=== PATIENT | male | born 1955 | race Two or more races ===

== ENCOUNTER 2017-06-29 17:33 | Inpatient (IN) | payer OTHER ==
[~2017-06-29] VITALS: Ht 172.7 cm; Wt 34.9 kg
[2017-06-29] MEDS ORDERED: PROAIR HFA8.5 GM INH (17:38)
[2017-06-29] MEDS ORDERED: TRAMADOL HCL50 MG ORAL (17:38)
[2017-06-29] MEDS ORDERED: QVAR7.3 G2 IH (17:38)
[2017-06-29 17:55] VITALS: BP 151/75
[2017-06-29 18:00] LABS: BASOPHILS % (AUTO) 0.6 % (0.0-2.0); EOSINOPHILS % (AUTO) 3.2 % (0.0-3.0); HEMOGLOBIN 14.3 G/DL (14.2-18.0); LYMPHOCYTES % (AUTO) 13.2 % (20.0-45.0); MEAN CORPUSCULAR VOLUME 93 FL (80-99); MONOCYTES % (AUTO) 11.4 % (1.0-10.0); NEUTROPHILS % (AUTO) 71.6 % (45.0-75.0); PLATELET COUNT 205 K/UL (150-450); RED BLOOD COUNT 4.52 M/UL (4.70-6.10); RED CELL DISTRIBUTION WIDTH 11.5 % (11.6-14.8); WHITE BLOOD COUNT 9.2 K/UL (4.8-10.8)
[2017-06-29 18:03] LABS: INR 1.1 (0.9-1.1)
[2017-06-29 18:07] LABS: ANION GAP 8 mmol/L (5-15); BLOOD UREA NITROGEN 31 mg/dL (7-18); CALCIUM 9.2 MG/DL (8.5-10.1); CARBON DIOXIDE 28 MMOL/L (21-32); CHLORIDE 104 MMOL/L (98-107); CREATININE 2.1 MG/DL (0.55-1.30); POTASSIUM 3.9 MMOL/L (3.5-5.1); SODIUM 140 MMOL/L (136-145)
[2017-06-29 18:11] LABS: ALANINE AMINOTRANSFERASE 28 U/L (12-78); ALBUMIN 3.5 G/DL (3.4-5.0); ALBUMIN/GLOBULIN RATIO 0.9 (1.0-2.7); ALKALINE PHOSPHATASE 80 U/L (46-116); ASPARTATE AMINO TRANSFERASE 34 U/L (15-37); BILIRUBIN,TOTAL 0.4 MG/DL (0.2-1.0)
[2017-06-29 18:15] VITALS: BP 111/75
[2017-06-29 21:27] LABS: APPEARANCE,URINE SLIGHTLY CLOUDY; BILIRUBIN, URINE NEGATIVE (NEGATIVE); GLUCOSE, URINE (UA) NEGATIVE (NEGATIVE); KETONES,URINE NEGATIVE (NEGATIVE); LEUKOCYTE ESTERASE ,URINE 2+ (NEGATIVE); NITRITE,URINE NEGATIVE (NEGATIVE); PH,URINE 5 (4.5-8.0); PROTEIN,URINE 2+ (NEGATIVE); UROBILINOGEN,URINE 1 MG/DL (0.0-1.0)
[2017-06-29] MEDS ORDERED: cefTRIAXone 1 GM in NS 55 ML IVPB ONE (21:30)
[2017-06-29 21:39] LABS: COLOR,URINE YELLOW
[2017-06-29] MEDS ORDERED: Miralax 17gm pkt ORAL PRN (22:00)
[2017-06-29] MEDS ORDERED: Zolpidem 5mg tab ORAL PRN (22:00)
[2017-06-29] MEDS ORDERED: LORazepam Inj 2mg/ml 1ml IV PRN (22:00)
[2017-06-29] MEDS ORDERED: Mylanta II UD 30ml ORAL PRN (22:00)
--- NOTE | 2017-06-29 22:32 | Emergency Room Report ---
History of Present Illness General Chief Complaint: Male Urogenital Problems Source: Patient, EMS Present Illness HPI Patient is a 62-year-old male brought in by EMS after increased difficulty with gross hematuria. The patient had previous episodes of hematuria which were not as severe. Patient reported having had dark red blood. He denied prior bleeding history. He reports taking the large amounts of omega-3 however he denies taking any anticoagulants or aspirin. The patient states that he had not been known to have any prostate issues. He had previously been on diuretics for leg swelling hydrochlorothiazide Allergies: Coded Allergies: No Known Allergies (Unverified , 06/29/17) Patient History Past Medical History: see triage record Reviewed Nursing Documentation: PMH: Agreed; PSxH: Agreed Nursing Documentation-PMH Past Medical History: No History, Except For Hx Cardiac Problems: Yes - CHF Hx Hypertension: Yes Hx Asthma: Yes Review of Systems All Other Systems: negative except mentioned in HPI Physical Exam Vital Signs Date Time Temp Pulse Resp B/P (MAP) Pulse Ox O2 Delivery O2 Flow Rate FiO2 06/29/17 17:25 99.2 100 14 151/75 98 Room Air 99.1 Sp02 EP Interpretation: reviewed, normal General Appearance: normal inspection, well appearing, no apparent distress, alert, GCS 15 Head: atraumatic ENT: normal ENT inspection, hearing grossly normal, normal voice Neck: normal inspection, full range of motion, supple, no bony tend Respiratory: normal inspection, lungs clear, normal breath sounds, no respiratory distress, no retraction, no wheezing Cardiovascular #1: regular rate, rhythm, no edema Gastrointestinal: normal inspection, normal bowel sounds, non tender, soft, no guarding, no hernia Genitourinary: no CVA tenderness Musculoskeletal: normal inspection, back normal, normal range of motion Neurologic: normal inspection, alert, oriented x3, responsive, 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 Differential diagnosis included was not limited to urinary tract infection, renal cell carcinoma, bladder CA pyelonephritis among others.Because of complexity of patient's case laboratory testing and imaging studies were ordered. A studies were notable for adequate hemoglobin as well as evidence of urinary infection. CT the abdomen pelvis read by radiology showed bilateral renal stones with atrophy of kidney. Patient was given IV antibiotics. Dr. Thorpe was contacted for inpatient management due to complexity of medical condition. Dr. Olson was contacted for urology consult Labs Test 06/29/17 17:42 06/29/17 20:37 White Blood Count 9.2 K/UL (4.8-10.8) Red Blood Count 4.52 M/UL (4.70-6.10) Hemoglobin 14.3 G/DL (14.2-18.0) Hematocrit 42.0 % (42.0-52.0) Mean Corpuscular Volume 93 FL (80-99) Mean Corpuscular Hemoglobin 31.5 PG (27.0-31.0) Mean Corpuscular Hemoglobin Concent 34.0 G/DL (32.0-36.0) Red Cell Distribution Width 11.5 % (11.6-14.8) Platelet Count 205 K/UL (150-450) Mean Platelet Volume 8.5 FL (6.5-10.1) Neutrophils (%) (Auto) 71.6 % (45.0-75.0) Lymphocytes (%) (Auto) 13.2 % (20.0-45.0) Monocytes (%) (Auto) 11.4 % (1.0-10.0) Eosinophils (%) (Auto) 3.2 % (0.0-3.0) Basophils (%) (Auto) 0.6 % (0.0-2.0) Prothrombin Time 11.0 SEC (9.30-11.50) Prothromb Time International Ratio 1.1 (0.9-1.1) Activated Partial Thromboplast Time 28 SEC (23-33) Sodium Level 140 MMOL/L (136-145) Potassium Level 3.9 MMOL/L (3.5-5.1) Chloride Level 104 MMOL/L (98-107) Carbon Dioxide Level 28 MMOL/L (21-32) Anion Gap 8 mmol/L (5-15) Blood Urea Nitrogen 31 mg/dL (7-18) Creatinine 2.1 MG/DL (0.55-1.30) Estimat Glomerular Filtration Rate 32.1 mL/min (>60) Glucose Level 117 MG/DL (74-106) Calcium Level 9.2 MG/DL (8.5-10.1) Total Bilirubin 0.4 MG/DL (0.2-1.0) Aspartate Amino Transf (AST/SGOT) 34 U/L (15-37) Alanine Aminotransferase (ALT/SGPT) 28 U/L (12-78) Alkaline Phosphatase 80 U/L (46-116) Total Protein 7.6 G/DL (6.4-8.2) Albumin 3.5 G/DL (3.4-5.0) Globulin 4.1 g/dL Albumin/Globulin Ratio 0.9 (1.0-2.7) Lipase 125 U/L (73-393) Urine Color Yellow Urine Appearance Slightly cloudy Urine pH 5 (4.5-8.0) Urine Specific [place] 1.020 (1.005-1.035) Urine Protein 2+ (NEGATIVE) Urine Glucose (UA) Negative (NEGATIVE) Urine Ketones Negative (NEGATIVE) Urine Occult Blood 5+ (NEGATIVE) Urine Nitrite Negative (NEGATIVE) Urine Bilirubin Negative (NEGATIVE) Urine Urobilinogen 1 MG/DL (0.0-1.0) Urine Leukocyte Esterase 2+ (NEGATIVE) Urine RBC 15-20 /HPF (0 - 0) Urine WBC 5-10 /HPF (0 - 0) Urine Squamous Epithelial Cells None /LPF (NONE/OCC) Urine Amorphous Sediment Few /LPF (NONE) Urine Bacteria Few /HPF (NONE) Last Vital Signs Date Time Temp Pulse Resp B/P (MAP) Pulse Ox O2 Delivery O2 Flow Rate FiO2 06/29/17 18:15 99.1 14 111/75 98 Room Air 99.1 06/29/17 17:25 100 Status: unchanged Disposition: ADMITTED INPATIENT Condition: Serious Referrals: ADRIANA PERRY,REFERRING (PCP) Rudi Shannon Jun 29, 2017 22:32
--- NOTE | 2017-06-29 23:00 | History and Physical ---
History of Present Illness General Date patient seen: Jun 29, 2017 Reason for Hospitalization: Male Urogenital Problems Present Illness HPI 62-year-old male with hx of CHF, brought in by EMS with CC of gross hematuria. The patient had previous episodes of hematuria which were not as severe. Patient reported having had dark red blood. He denied prior bleeding history. he denies taking any anticoagulants or aspirin. The patient states that he had not been known to have any prostate issues. Allergies: Coded Allergies: No Known Allergies (Unverified , 06/29/17) Medication History Scheduled Albuterol Sulfate* (Proair Hfa*), Unknown Dose INH Q6H, (Reported) Scheduled PRN Tramadol Hcl* (Ultram*), Unknown Dose ORAL Q6H PRN for For Pain, (Reported) Miscellaneous Medications Beclomethasone Dipropionate (Qvar), Unknown Dose IH, (Reported) Patient History Healthcare decision maker Resuscitation status Advanced Directive on File Past Medical/Surgical History Past Medical/Surgical History: (1) Bilateral kidney stones Review of Systems All Other Systems: negative except mentioned in HPI Physical Exam General Appearance: WD/WN Lines, tubes and drains: peripheral HEENT: normocephalic, atraumatic Neck: non-tender, normal alignment, limited range of motion Respiratory/Chest: chest wall non-tender, lungs clear Cardiovascular/Chest: normal peripheral pulses, normal rate Abdomen: non tender Last 24 Hour Vital Signs Date Time Temp Pulse Resp B/P (MAP) Pulse Ox O2 Delivery O2 Flow Rate FiO2 06/29/17 18:15 99.1 14 111/75 98 Room Air 99.1 06/29/17 17:55 99.1 14 151/75 98 Room Air 99.1 06/29/17 17:25 99.2 100 14 151/75 98 Room Air 99.1 Laboratory Tests Test 06/29/17 17:42 06/29/17 20:37 White Blood Count 9.2 K/UL (4.8-10.8) Red Blood Count 4.52 M/UL (4.70-6.10) L Hemoglobin 14.3 G/DL (14.2-18.0) Hematocrit 42.0 % (42.0-52.0) Mean Corpuscular Volume 93 FL (80-99) Mean Corpuscular Hemoglobin 31.5 PG (27.0-31.0) H Mean Corpuscular Hemoglobin Concent 34.0 G/DL (32.0-36.0) Red Cell Distribution Width 11.5 % (11.6-14.8) L Platelet Count 205 K/UL (150-450) Mean Platelet Volume 8.5 FL (6.5-10.1) Neutrophils (%) (Auto) 71.6 % (45.0-75.0) Lymphocytes (%) (Auto) 13.2 % (20.0-45.0) L Monocytes (%) (Auto) 11.4 % (1.0-10.0) H Eosinophils (%) (Auto) 3.2 % (0.0-3.0) H Basophils (%) (Auto) 0.6 % (0.0-2.0) Prothrombin Time 11.0 SEC (9.30-11.50) Prothromb Time International Ratio 1.1 (0.9-1.1) Activated Partial Thromboplast Time 28 SEC (23-33) Sodium Level 140 MMOL/L (136-145) Potassium Level 3.9 MMOL/L (3.5-5.1) Chloride Level 104 MMOL/L (98-107) Carbon Dioxide Level 28 MMOL/L (21-32) Anion Gap 8 mmol/L (5-15) Blood Urea Nitrogen 31 mg/dL (7-18) H Creatinine 2.1 MG/DL (0.55-1.30) H Estimat Glomerular Filtration Rate 32.1 mL/min (>60) Glucose Level 117 MG/DL (74-106) H Calcium Level 9.2 MG/DL (8.5-10.1) Total Bilirubin 0.4 MG/DL (0.2-1.0) Aspartate Amino Transf (AST/SGOT) 34 U/L (15-37) Alanine Aminotransferase (ALT/SGPT) 28 U/L (12-78) Alkaline Phosphatase 80 U/L (46-116) Total Protein 7.6 G/DL (6.4-8.2) Albumin 3.5 G/DL (3.4-5.0) Globulin 4.1 g/dL Albumin/Globulin Ratio 0.9 (1.0-2.7) L Lipase 125 U/L (73-393) Urine Color Yellow Urine Appearance Slightly cloudy Urine pH 5 (4.5-8.0) Urine Specific [place] 1.020 (1.005-1.035) Urine Protein 2+ (NEGATIVE) H Urine Glucose (UA) Negative (NEGATIVE) Urine Ketones Negative (NEGATIVE) Urine Occult Blood 5+ (NEGATIVE) H Urine Nitrite Negative (NEGATIVE) Urine Bilirubin Negative (NEGATIVE) Urine Urobilinogen 1 MG/DL (0.0-1.0) H Urine Leukocyte Esterase 2+ (NEGATIVE) H Urine RBC 15-20 /HPF (0 - 0) H Urine WBC 5-10 /HPF (0 - 0) H Urine Squamous Epithelial Cells None /LPF (NONE/OCC) Urine Amorphous Sediment Few /LPF (NONE) H Urine Bacteria Few /HPF (NONE) Height (Feet): 5 Height (Inches): 10.00 Weight (Pounds): 170 Medications Current Medications Medications (Trade) Dose Ordered Sig/Fatoumata Route PRN Reason Start Time Stop Time Status Last Admin Dose Admin Acetaminophen (Tylenol) 650 mg Q4H PRN ORAL fever 06/29/17 22:00 07/29/17 21:59 Al Hydroxide/Mg Hydroxide (Mylanta II) 30 ml Q6H PRN ORAL dyspepsia 06/29/17 22:00 07/29/17 21:59 Dextrose (Dextrose 50%) STAT PRN IV Hypoglycemia 06/29/17 22:00 07/29/17 21:59 Lorazepam (Ativan 2mg/ml 1ml) 0.5 mg Q4H PRN IV For Anxiety 06/29/17 22:00 07/06/17 21:59 Morphine Sulfate (Morphine Sulfate) 1 mg Q4H PRN IVP For Pain 06/29/17 22:30 07/06/17 22:29 Ondansetron HCl (Zofran) 4 mg Q6H PRN IVP Nausea & Vomiting 06/29/17 22:00 07/29/17 21:59 Polyethylene Glycol (Miralax) 17 gm HSPRN PRN ORAL Constipation 06/29/17 22:00 07/29/17 21:59 Zolpidem Tartrate (Ambien) 5 mg HSPRN PRN ORAL Insomnia 06/29/17 22:00 07/06/17 21:59 Assessment/Plan Problem List: (1) Hematuria ICD Codes: R31.9 - Hematuria, unspecified SNOMED: 73385819 (2) Urinary tract infection ICD Codes: N39.0 - Urinary tract infection, site not specified SNOMED: 57225039 (3) Bilateral kidney stones ICD Codes: N20.0 - Calculus of kidney SNOMED: 07824767 Assessment/Plan check urine c/s Urology evaluation iv fluids iv abx Annelise Thorpe MD Jun 29, 2017 23:00
[2017-06-30] VITALS (8 sets, daily range): BP systolic 92–132; BP diastolic 60–81
[2017-06-30 07:30] LABS: ALANINE AMINOTRANSFERASE 23 U/L (12-78); ALBUMIN 2.9 G/DL (3.4-5.0); ALBUMIN/GLOBULIN RATIO 0.8 (1.0-2.7); ALKALINE PHOSPHATASE 68 U/L (46-116); ANION GAP 8 mmol/L (5-15); ASPARTATE AMINO TRANSFERASE 25 U/L (15-37); BILIRUBIN,TOTAL 0.2 MG/DL (0.2-1.0); BLOOD UREA NITROGEN 28 mg/dL (7-18); CALCIUM 8.8 MG/DL (8.5-10.1); CARBON DIOXIDE 28 MMOL/L (21-32); CHLORIDE 106 MMOL/L (98-107); CHOLESTEROL 116 MG/DL (< 200); CREATININE 1.7 MG/DL (0.55-1.30); HDL CHOLESTEROL 42 MG/DL (40-60); POTASSIUM 3.7 MMOL/L (3.5-5.1); SODIUM 142 MMOL/L (136-145); TRIGLYCERIDES 100 MG/DL (30-150)
[2017-06-30 07:32] LABS: BASOPHILS % (AUTO) 0.8 % (0.0-2.0); EOSINOPHILS % (AUTO) 5.9 % (0.0-3.0); HEMATOCRIT 36.6 % (42.0-52.0); HEMOGLOBIN 12.3 G/DL (14.2-18.0); MEAN CORPUSCULAR VOLUME 93 FL (80-99); MONOCYTES % (AUTO) 15.8 % (1.0-10.0); NEUTROPHILS % (AUTO) 55.6 % (45.0-75.0); PLATELET COUNT 182 K/UL (150-450); RED BLOOD COUNT 3.95 M/UL (4.70-6.10); RED CELL DISTRIBUTION WIDTH 11.5 % (11.6-14.8); WHITE BLOOD COUNT 6.8 K/UL (4.8-10.8)
--- NOTE | 2017-06-30 08:54 | Diagnostic Imaging Report ---
Indication: Abdominal pain Technique: Spiral acquisitions obtained through the abdomen and pelvis. No oral contrast utilized, per emergency room physician request No IV contrast utilized, per referring physician request.. Multiplanar reconstructions were generated. Total dose length product 517.01 mGycm. CTDIvol(s) 10.62 mGy. Dose reduction achieved using automated exposure control Comparison: None Findings: There are scattered colonic diverticula. No evidence of diverticulitis liter. The appendix is normal. No small bowel distention. No free or loculated intraperitoneal air or fluid. Distal esophagus, stomach, duodenum are unremarkable. Lack of IV contrast limits assessment of the solid organs. The liver is somewhat enlarged. The gallbladder, bile ducts, pancreas, spleen, adrenals are unremarkable. The right kidney is atrophic, demonstrates an 18 x 6 x 12 mm staghorn calculus in the lower pole. As well as other smaller calcifications No hydronephrosis. The left kidney is normal in size. It demonstrates an 8 x 4 mm calculus in the lower pole collecting system. No focal renal mass. No retroperitoneal or mesenteric mass or adenopathy. No pelvic mass or adenopathy. There are degenerative changes of the lumbar spine and bilateral hip. The included lung bases demonstrate minimal scarring or atelectasis at the posterior medial right lung base and the medial left lung base. Impression: No acute abnormality Bilateral nephrolithiasis as described, including right lower pole staghorn calculus Markedly atrophic right kidney Degenerative lumbar spondylosis and bilateral hip degenerative change Colonic diverticulosis This agrees with the preliminary interpretation provided overnight by [facility] teleradiology service. The CT scanner at [facility] is accredited by the [employer] and the scans are performed using protocols designed to limit radiation exposure to as low as reasonably achievable to attain images of sufficient resolution adequate for diagnostic evaluation.
--- NOTE | 2017-06-30 16:32 | Pulmonology Progress Note ---
Assessment/Plan Problems: (1) Hematuria (2) Urinary tract infection (3) Bilateral kidney stones Assessment/Plan iv fluids check culutres rneal studies renal to see awaiting urology evaluation Subjective ROS Limited/Unobtainable: No Interval Events: doing better, Allergies: Coded Allergies: No Known Allergies (Unverified , 06/29/17) Objective Last 24 Hour Vital Signs Date Time Temp Pulse Resp B/P (MAP) Pulse Ox O2 Delivery O2 Flow Rate FiO2 06/30/17 16:00 97.0 68 18 106/63 97 97.0 06/30/17 11:44 97.3 70 18 115/75 98 97.3 06/30/17 08:00 97.9 83 18 109/66 97 Room Air 97.9 06/30/17 04:00 99.4 84 20 113/62 96 99.4 06/30/17 00:45 37.11270 70 21 115/89 97 Room Air 209.5 06/30/17 00:45 98.6 70 21 132/81 97 98.6 06/30/17 00:00 98.9 80 18 115/81 96 Room Air 98.9 06/29/17 18:15 99.1 14 111/75 98 Room Air 99.1 06/29/17 17:55 99.1 14 151/75 98 Room Air 99.1 06/29/17 17:25 99.2 100 14 151/75 98 Room Air 99.1 Intake and Output 06/29/17 06/30/17 19:00 07:00 Intake Total 0 ml Output Total 450 ml Balance 0 ml -450 ml Intake Oral 0 ml Output Urine Total 450 ml Objective General Appearance: WD/WN Lines, tubes and drains: peripheral HEENT: normocephalic, atraumatic Neck: non-tender, normal alignment, limited range of motion Respiratory/Chest: chest wall non-tender, lungs clear Cardiovascular/Chest: normal peripheral pulses, normal rate Abdomen: non tender Laboratory Tests 06/29/17 17:42: White Blood Count 9.2, Red Blood Count 4.52L, Hemoglobin 14.3, Hematocrit 42.0, Mean Corpuscular Volume 93, Mean Corpuscular Hemoglobin 31.5H, Mean Corpuscular Hemoglobin Concent 34.0, Red Cell Distribution Width 11.5L, Platelet Count 205, Mean Platelet Volume 8.5, Neutrophils (%) (Auto) 71.6, Lymphocytes (%) (Auto) 13.2L, Monocytes (%) (Auto) 11.4H, Eosinophils (%) (Auto) 3.2H, Basophils (%) ( Auto) 0.6, Prothrombin Time 11.0, Prothromb Time International Ratio 1.1, Activated Partial Thromboplast Time 28, Sodium Level 140, Potassium Level 3.9, Chloride Level 104, Carbon Dioxide Level 28, Anion Gap 8, Blood Urea Nitrogen 31H, Creatinine 2.1H, Estimat Glomerular Filtration Rate 32.1, Glucose Level 117H, Calcium Level 9.2, Total Bilirubin 0.4, Aspartate Amino Transf (AST/SGOT) 34, Alanine Aminotransferase (ALT/SGPT) 28, Alkaline Phosphatase 80, Total Protein 7.6, Albumin 3.5, Globulin 4.1, Albumin/Globulin Ratio 0.9L, Lipase 125 06/29/17 20:37: Urine Color Yellow, Urine Appearance Slightly cloudy, Urine pH 5, Urine Specific [place] 1.020, Urine Protein 2+H, Urine Glucose (UA) Negative, Urine Ketones Negative, Urine Occult Blood 5+H, Urine Nitrite Negative, Urine Bilirubin Negative, Urine Urobilinogen 1H, Urine Leukocyte Esterase 2+H, Urine RBC 15-20H, Urine WBC 5-10H, Urine Squamous Epithelial Cells None, Urine Amorphous Sediment FewH, Urine Bacteria Few 06/30/17 05:50: White Blood Count 6.8, Red Blood Count 3.95L, Hemoglobin 12.3L, Hematocrit 36.6L , Mean Corpuscular Volume 93, Mean Corpuscular Hemoglobin 31.2H, Mean Corpuscular Hemoglobin Concent 33.7, Red Cell Distribution Width 11.5L, Platelet Count 182, Mean Platelet Volume 8.6, Neutrophils (%) (Auto) 55.6, Lymphocytes (%) (Auto) 22.0, Monocytes (%) (Auto) 15.8H, Eosinophils (%) (Auto) 5.9H, Basophils (%) (Auto) 0.8, Sodium Level 142, Potassium Level 3.7, Chloride Level 106, Carbon Dioxide Level 28, Anion Gap 8, Blood Urea Nitrogen 28H, Creatinine 1.7H, Estimat Glomerular Filtration Rate 40.9, Glucose Level 96, Calcium Level 8.8, Total Bilirubin 0.2, Aspartate Amino Transf (AST/SGOT) 25, Alanine Aminotransferase (ALT/SGPT) 23, Alkaline Phosphatase 68, Total Protein 6.6, Albumin 2.9L, Globulin 3.7, Albumin/Globulin Ratio 0.8L, Triglycerides Level 100, Cholesterol Level 116, LDL Cholesterol 61, HDL Cholesterol 42, Cholesterol/HDL Ratio 2.8L, Thyroid Stimulating Hormone (TSH) 1.732 Current Medications Medications (Trade) Dose Ordered Sig/Fatoumata Route PRN Reason Start Time Stop Time Status Last Admin Dose Admin Acetaminophen (Tylenol) 650 mg Q4H PRN ORAL fever 06/29/17 22:00 07/29/17 21:59 Al Hydroxide/Mg Hydroxide (Mylanta II) 30 ml Q6H PRN ORAL dyspepsia 06/29/17 22:00 07/29/17 21:59 Dextrose (Dextrose 50%) STAT PRN IV Hypoglycemia 06/29/17 22:00 07/29/17 21:59 Lorazepam (Ativan 2mg/ml 1ml) 0.5 mg Q4H PRN IV For Anxiety 06/29/17 22:00 07/06/17 21:59 Morphine Sulfate (Morphine Sulfate) 1 mg Q4H PRN IVP For Pain 06/29/17 22:30 07/06/17 22:29 Ondansetron HCl (Zofran) 4 mg Q6H PRN IVP Nausea & Vomiting 06/29/17 22:00 07/29/17 21:59 Polyethylene Glycol (Miralax) 17 gm HSPRN PRN ORAL Constipation 06/29/17 22:00 07/29/17 21:59 Zolpidem Tartrate (Ambien) 5 mg HSPRN PRN ORAL Insomnia 06/29/17 22:00 07/06/17 21:59 Annelise Thorpe MD Jun 30, 2017 16:32
[2017-06-30] MEDS: Morphine Sulfate 4mg/ml Inj IVP PRN (16:37)
[2017-06-30 18:29] LABS: CREATINE KINASE 241 U/L (26-308)
--- NOTE | 2017-06-30 18:29 | Consultation ---
Consult Note Consult Note Patient is a 62-year-old male brought in by EMS after increased difficulty with gross hematuria. The patient had previous episodes of hematuria which were not as severe. Patient reported having had dark red blood. He denied prior bleeding history. He reports taking the large amounts of omega-3 however he denies taking any anticoagulants or aspirin. The patient states that he had not been known to have any prostate issues. He had previously been on diuretics for leg swelling hydrochlorothiazide interviewed and examined Assessment/Plan Renal failure- Atrophic right Kidney per JANIE done out side Bilateral kidney stones UTI Hydrate- flomax- monitor renal parameters monitor H&H TAMIKO RAMIREZ Jun 30, 2017 18:29
[2017-06-30] MEDS: D5NS 1,000 ML IV SCH (19:01)
[2017-06-30] MEDS: Tamsulosin 0.4mg cap ORAL SCH (21:10)
[2017-06-30 21:36] LABS: APPEARANCE,URINE CLEAR; BILIRUBIN, URINE NEGATIVE (NEGATIVE); COLOR,URINE PALE YELLOW; GLUCOSE, URINE (UA) NEGATIVE (NEGATIVE); KETONES,URINE NEGATIVE (NEGATIVE); LEUKOCYTE ESTERASE ,URINE 2+ (NEGATIVE); NITRITE,URINE NEGATIVE (NEGATIVE); PH,URINE 6 (4.5-8.0); PROTEIN,URINE NEGATIVE (NEGATIVE); UROBILINOGEN,URINE NORMAL MG/DL (0.0-1.0)
[2017-07-01] MEDS: Morphine Sulfate 4mg/ml Inj IVP PRN ×3 (00:12→20:41)
--- NOTE | 2017-07-01 02:15 | Consultation ---
DATE OF CONSULTATION: 06/30/2017 UROLOGY CONSULTATION ATTENDING/CONSULTING PHYSICIAN: Annelise Thorpe M.D. CHIEF COMPLAINT/HISTORY OF PRESENT ILLNESS: I was asked by Dr. Thorpe to evaluate this 62-year-old gentleman regarding history of gross hematuria and bilateral kidney stones seen on the CT scan. Briefly, the patient presented to the hospital with a history of gross hematuria. Apparently, he has been told by his primary doctor that he has had microhematuria in the past. A renal ultrasound done in May revealed some possible kidney stones and the patient was in the process of being referred to a urologist in his health plan. He presented to the hospital as noted above with gross hematuria. He does take significant amounts of omega-3 fatty acids, although he does not take any other anticoagulants. He does not have any known prostate issues or history to his knowledge. A CT scan revealed evidence of kidney stones and as such I was asked to evaluate the patient. PAST MEDICAL HISTORY: 1. CHF. 2. Microhematuria. 3. Bilateral kidney stones, recently diagnosed. MEDICATIONS: Please see the chart for current medications and administration details. Briefly, the patient does take [place] 3 as noted above at home. ALLERGIES: No known drug allergies. SOCIAL HISTORY: Unremarkable. FAMILY HISTORY: Noncontributory. REVIEW OF SYSTEMS: A 12-system review of systems essentially unremarkable outside of what is described above. PHYSICAL EXAMINATION: GENERAL: The patient is an older gentleman, awake, alert, and oriented x4, pleasant, no obvious distress. HEENT: NC/AT. EOMI. NECK: Supple. Full range of motion. Oropharynx clear. CHEST: Within normal limits. ABDOMEN: Soft, flat, nontender, and nondistended. EXTREMITIES: Warm and well perfused. No cyanosis, clubbing, or edema. BACK: No CVA tenderness to percussion. NEUROLOGIC: Grossly nonfocal. GENITOURINARY: Reveals normal male external genitalia. LABORATORY AND DIAGNOSTIC DATA: White blood cell count 6.8, hematocrit 36.6, and platelets 182. PT 11.0, INR 1.1, and PTT 28. Sodium 142, potassium 3.7, chloride 106, bicarbonate 28, BUN 28, creatinine 1.7 and glucose 96. LFTs within normal limits. Urinalysis, specific gravity 1.020, pH 5.0. Dip test notable for 2+ protein, 5+ occult blood, and 2+ leukocyte esterase. Microanalysis with 15 to 20 red blood cells per high-power field, 5 to 10 white blood cells per high-power field, and few bacteria seen. Diagnostic imaging, CT scan of the abdomen and pelvis reveals 1.8 cm staghorn stone in the lower pole of the right kidney. The right kidney is also atrophic. There are some small calcifications also seen. There is no hydronephrosis or ureteral stone. The left kidney is normal in size. It has an 8 mm calculus in the lower pole of the collecting system. There are no focal renal masses or evidence of adenopathy. There is no pelvic mass or adenopathy. ASSESSMENT AND PLAN: In summary, the patient is a 62-year-old gentleman with a history of microhematuria and now gross hematuria. He apparently takes significant amounts of omega-3 fatty acids at baseline. He had an ultrasound, which revealed evidence of kidney stones and in the last couple days had a physical therapy session that included vibrostimulation and electrical stimulation on his back. He presented to the hospital with gross hematuria. Workup for the same with a CT scan revealed bilateral nonobstructing kidney stones, larger on the right. Physical exam is essentially unremarkable and the patient's urine has since cleared by his report. Laboratory data is notable for renal insufficiency and microhematuria. Diagnostic imaging reveals the findings as described above. I discussed these findings today with the patient at the bedside. I feel that his episode of gross hematuria is likely secondary to his physical therapy session with vibrostimulation on his back in the setting of anticoagulation and pre-existing kidney stones. As his stones are nonobstructing, they are not emergently needed treatment. I did instruct the patient however to follow up with his primary doctor with his CT report so that he can refer him to a urologist in his health plan for management of the stones. The patient verbalized understanding of the plan and agreed with the plan. Thank you for allowing to participate in the care of this nice gentleman. Please do not hesitate to contact me if you have any questions that you may further have regarding his care. I will be happy to see him with you as needed. Leonard Olson M.D. DR: HUNTER JOB#: [id number] CC:
[2017-07-01 04:00] VITALS: BP 110/76
[2017-07-01 07:10] LABS: BASOPHILS % (AUTO) 0.7 % (0.0-2.0); EOSINOPHILS % (AUTO) 10.4 % (0.0-3.0); HEMATOCRIT 32.9 % (42.0-52.0); LYMPHOCYTES % (AUTO) 39.5 % (20.0-45.0); MEAN CORPUSCULAR VOLUME 93 FL (80-99); MONOCYTES % (AUTO) 14.3 % (1.0-10.0); NEUTROPHILS % (AUTO) 35.1 % (45.0-75.0); PLATELET COUNT 170 K/UL (150-450); RED BLOOD COUNT 3.55 M/UL (4.70-6.10); RED CELL DISTRIBUTION WIDTH 11.7 % (11.6-14.8); WHITE BLOOD COUNT 5.5 K/UL (4.8-10.8)
[2017-07-01 07:13] LABS: ALANINE AMINOTRANSFERASE 22 U/L (12-78); ALBUMIN 2.7 G/DL (3.4-5.0); ALBUMIN/GLOBULIN RATIO 0.8 (1.0-2.7); ALKALINE PHOSPHATASE 57 U/L (46-116); ANION GAP 6 mmol/L (5-15); ASPARTATE AMINO TRANSFERASE 19 U/L (15-37); BILIRUBIN,TOTAL 0.2 MG/DL (0.2-1.0); BLOOD UREA NITROGEN 20 mg/dL (7-18); CALCIUM 8.3 MG/DL (8.5-10.1); CARBON DIOXIDE 29 MMOL/L (21-32); CHLORIDE 106 MMOL/L (98-107); CHOLESTEROL 125 MG/DL (< 200); CREATININE 1.4 MG/DL (0.55-1.30); FERRITIN 75 NG/ML (8-388); HDL CHOLESTEROL 38 MG/DL (40-60); PHOSPHORUS 2.9 MG/DL (2.5-4.9); POTASSIUM 3.6 MMOL/L (3.5-5.1); SODIUM 140 MMOL/L (136-145); TRIGLYCERIDES 77 MG/DL (30-150)
[2017-07-01 07:40] LABS: % IRON SATURATION 13 % (15-50); IRON 25 ug/dL (50-175); TOTAL IRON BINDING CAPACITY 196 ug/dL (250-450)
[2017-07-01] MEDS: D5NS 1,000 ML IV SCH ×2 (07:50→20:41)
[2017-07-01 08:00] VITALS: BP 115/63
[2017-07-01 12:00] VITALS: BP 110/72
--- NOTE | 2017-07-01 13:27 | Consultation ---
Consult Note Consult Note ID DIC # [id number] Nikos Gutierres MD Jul 01, 2017 13:27
--- NOTE | 2017-07-01 15:46 | Nephrology Progress Note ---
Assessment/Plan Problem List: (1) Bilateral kidney stones Assessment: with hematuria (2) Acute renal failure Assessment: resolving with hydration Assessment Renal failure- Atrophic right Kidney per JAINE done out side Bilateral kidney stones UTI Low B12 Plan Hydrate- flomax- monitor renal parameters monitor H&H B12 SQ Bilateral nephrolithiasis as described, including right lower pole staghorn calculus Markedly atrophic right kidney Subjective ROS Limited/Unobtainable: No Objective Objective Last 24 Hour Vital Signs Date Time Temp Pulse Resp B/P (MAP) Pulse Ox O2 Delivery O2 Flow Rate FiO2 07/01/17 13:01 Room Air 07/01/17 12:00 97.2 65 18 110/72 95 97.2 07/01/17 10:01 97.7 07/01/17 09:31 97.7 07/01/17 08:00 97.7 79 19 115/63 94 Room Air 97.7 07/01/17 04:00 98.1 71 18 110/76 98 98.1 07/01/17 00:12 98.2 06/30/17 23:59 98.2 73 18 116/75 98 98.2 06/30/17 20:00 97.7 71 18 92/60 98 97.7 06/30/17 16:00 97.0 68 18 106/63 97 97.0 Intake and Output 06/30/17 07/01/17 19:00 07:00 Intake Total 480 ml 1165 ml Output Total 680 ml 2000 ml Balance -200 ml -835 ml Intake Oral 480 ml 490 ml IV Total 675 ml Output Urine Total 680 ml 2000 ml Laboratory Tests 06/30/17 20:40: Urine Color Pale yellow, Urine Appearance Clear, Urine pH 6, Urine Specific [place] 1.020, Urine Protein Negative, Urine Glucose (UA) Negative, Urine Ketones Negative, Urine Occult Blood 2+H, Urine Nitrite Negative, Urine Bilirubin Negative, Urine Urobilinogen Normal, Urine Leukocyte Esterase 2+H, Urine RBC 5-10H, Urine WBC 2-4, Urine Squamous Epithelial Cells None, Urine Bacteria Few, Urine Eosinophils None seen, Urine Random Sodium 148H 07/01/17 05:20: White Blood Count 5.5, Red Blood Count 3.55L, Hemoglobin 11.0L, Hematocrit 32.9L , Mean Corpuscular Volume 93, Mean Corpuscular Hemoglobin 31.1H, Mean Corpuscular Hemoglobin Concent 33.5, Red Cell Distribution Width 11.7, Platelet Count 170, Mean Platelet Volume 8.3, Neutrophils (%) (Auto) 35.1L, Lymphocytes ( %) (Auto) 39.5, Monocytes (%) (Auto) 14.3H, Eosinophils (%) (Auto) 10.4H, Basophils (%) (Auto) 0.7, Sodium Level 140, Potassium Level 3.6, Chloride Level 106, Carbon Dioxide Level 29, Anion Gap 6, Blood Urea Nitrogen 20H, Creatinine 1.4H, Estimat Glomerular Filtration Rate 51.2, Glucose Level 101, Hemoglobin A1c 6.4H, Uric Acid 5.4, Calcium Level 8.3L, Phosphorus Level 2.9, Magnesium Level 1.9, Iron Level 25L, Total Iron Binding Capacity 196L, Percent Iron Saturation 13L, Unsaturated Iron Binding 171, Ferritin 75, Total Bilirubin 0.2, Aspartate Amino Transf (AST/SGOT) 19, Alanine Aminotransferase (ALT/SGPT) 22, Alkaline Phosphatase 57, Total Protein 6.2L, Albumin 2.7L, Globulin 3.5, Albumin /Globulin Ratio 0.8L, Triglycerides Level 77, Cholesterol Level 125, LDL Cholesterol 76, HDL Cholesterol 38L, Cholesterol/HDL Ratio 3.3, Vitamin B12 Level 138L, Folate 11.5, Thyroid Stimulating Hormone (TSH) 1.928 Height (Feet): 5 Height (Inches): 8.00 Weight (Pounds): 77 General Appearance: no apparent distress Abdomen: soft TAMIKO RAMIREZ Jul 01, 2017 15:46
[2017-07-01 16:00] VITALS: BP 118/66
[2017-07-01] MEDS: Vitamin B12 1000mcg/ml Inj SUBQ SCH (18:24)
[2017-07-01 19:49] VITALS: BP 117/75
--- NOTE | 2017-07-01 20:10 | Pulmonology Progress Note ---
Assessment/Plan Problems: (1) Hematuria (2) Urinary tract infection (3) Bilateral kidney stones Assessment/Plan iv fluids check culutres rneal studies renal to see awaiting urology evaluation Subjective Allergies: Coded Allergies: No Known Allergies (Unverified , 06/29/17) Objective Last 24 Hour Vital Signs Date Time Temp Pulse Resp B/P (MAP) Pulse Ox O2 Delivery O2 Flow Rate FiO2 07/01/17 19:49 98.3 76 18 117/75 98 98.3 07/01/17 16:00 97.2 70 20 118/66 96 97.2 07/01/17 13:01 Room Air 07/01/17 12:00 97.2 65 18 110/72 95 97.2 07/01/17 10:01 97.7 07/01/17 09:31 97.7 07/01/17 08:00 97.7 79 19 115/63 94 Room Air 97.7 07/01/17 04:00 98.1 71 18 110/76 98 98.1 07/01/17 00:12 98.2 06/30/17 23:59 98.2 73 18 116/75 98 98.2 Intake and Output 06/30/17 07/01/17 19:00 07:00 Intake Total 480 ml 1165 ml Output Total 680 ml 2000 ml Balance -200 ml -835 ml Intake Oral 480 ml 490 ml IV Total 675 ml Output Urine Total 680 ml 2000 ml Objective General Appearance: WD/WN Lines, tubes and drains: peripheral HEENT: normocephalic, atraumatic Neck: non-tender, normal alignment, limited range of motion Respiratory/Chest: chest wall non-tender, lungs clear Cardiovascular/Chest: normal peripheral pulses, normal rate Abdomen: non tender Laboratory Tests 06/30/17 20:40: Urine Color Pale yellow, Urine Appearance Clear, Urine pH 6, Urine Specific [place] 1.020, Urine Protein Negative, Urine Glucose (UA) Negative, Urine Ketones Negative, Urine Occult Blood 2+H, Urine Nitrite Negative, Urine Bilirubin Negative, Urine Urobilinogen Normal, Urine Leukocyte Esterase 2+H, Urine RBC 5-10H, Urine WBC 2-4, Urine Squamous Epithelial Cells None, Urine Bacteria Few, Urine Eosinophils None seen, Urine Random Sodium 148H 07/01/17 05:20: White Blood Count 5.5, Red Blood Count 3.55L, Hemoglobin 11.0L, Hematocrit 32.9L , Mean Corpuscular Volume 93, Mean Corpuscular Hemoglobin 31.1H, Mean Corpuscular Hemoglobin Concent 33.5, Red Cell Distribution Width 11.7, Platelet Count 170, Mean Platelet Volume 8.3, Neutrophils (%) (Auto) 35.1L, Lymphocytes ( %) (Auto) 39.5, Monocytes (%) (Auto) 14.3H, Eosinophils (%) (Auto) 10.4H, Basophils (%) (Auto) 0.7, Sodium Level 140, Potassium Level 3.6, Chloride Level 106, Carbon Dioxide Level 29, Anion Gap 6, Blood Urea Nitrogen 20H, Creatinine 1.4H, Estimat Glomerular Filtration Rate 51.2, Glucose Level 101, Hemoglobin A1c 6.4H, Uric Acid 5.4, Calcium Level 8.3L, Phosphorus Level 2.9, Magnesium Level 1.9, Iron Level 25L, Total Iron Binding Capacity 196L, Percent Iron Saturation 13L, Unsaturated Iron Binding 171, Ferritin 75, Total Bilirubin 0.2, Aspartate Amino Transf (AST/SGOT) 19, Alanine Aminotransferase (ALT/SGPT) 22, Alkaline Phosphatase 57, Total Protein 6.2L, Albumin 2.7L, Globulin 3.5, Albumin /Globulin Ratio 0.8L, Triglycerides Level 77, Cholesterol Level 125, LDL Cholesterol 76, HDL Cholesterol 38L, Cholesterol/HDL Ratio 3.3, Vitamin B12 Level 138L, Folate 11.5, Thyroid Stimulating Hormone (TSH) 1.928 Current Medications Medications (Trade) Dose Ordered Sig/Fatoumata Route PRN Reason Start Time Stop Time Status Last Admin Dose Admin Acetaminophen (Tylenol) 650 mg Q4H PRN ORAL fever 06/29/17 22:00 07/29/17 21:59 Cyanocobalamin (Vitamin B12) 1,000 mcg DAILY SUBQ 07/01/17 16:30 07/31/17 16:29 07/01/17 18:24 Dextrose (Dextrose 50%) 25 ml STAT PRN IV HYPOGLYCEMIA 07/01/17 09:45 07/31/17 09:44 Dextrose (Dextrose 50%) 50 ml STAT PRN IV Hypoglycemia 07/01/17 09:45 07/29/17 21:59 Dextrose/Sodium Chloride 1,000 ml @ 75 mls/hr [id number] IV 06/30/17 18:30 07/30/17 18:29 07/01/17 07:50 Lansoprazole (Prevacid) 30 mg DAILY ORAL 06/30/17 18:30 07/30/17 18:29 07/01/17 08:24 Lorazepam (Ativan 2mg/ml 1ml) 0.5 mg Q4H PRN IV For Anxiety 06/29/17 22:00 07/06/17 21:59 Morphine Sulfate (Morphine Sulfate) 1 mg Q4H PRN IVP For Pain 06/29/17 22:30 07/06/17 22:29 07/01/17 09:31 Ondansetron HCl (Zofran) 4 mg Q6H PRN IVP Nausea & Vomiting 06/29/17 22:00 07/29/17 21:59 Polyethylene Glycol (Miralax) 17 gm HSPRN PRN ORAL Constipation 06/29/17 22:00 07/29/17 21:59 Tamsulosin HCl (Flomax) 0.4 mg BEDTIME ORAL 06/30/17 21:00 07/30/17 20:59 06/30/17 21:10 Zolpidem Tartrate (Ambien) 5 mg HSPRN PRN ORAL Insomnia 06/29/17 22:00 07/06/17 21:59 Annelise Thorpe MD Jul 01, 2017 20:10
[2017-07-01] MEDS: Tamsulosin 0.4mg cap ORAL SCH (20:39)
--- NOTE | 2017-07-01 22:45 | Consultation ---
DATE OF CONSULTATION: 07/01/2017 INFECTIOUS DISEASE CONSULTATION CONSULTING PHYSICIAN: Nikos Gutierres M.D. REQUESTING PHYSICIAN: Annelise Thorpe M.D. REASON FOR CONSULTATION: Evaluation of the patient for urinary tract infection. HISTORY OF PRESENT ILLNESS: The patient is a 62-year-old male, who came to the hospital for gross hematuria and burning sensation with urination. Reportedly, the patient has microscopic hematuria in the last one month or so and has taken few courses of oral antibiotics without any resolution. Then, the patient developed gross hematuria and because of that, the patient was admitted. The patient has history of chills, but no fever. PAST MEDICAL HISTORY: 1. Hypertension. 2. Asthma. 3. ? CHF. MEDICATIONS: The patient received one dose of Rocephin in the emergency room. ALLERGIES: No known drug allergies. SOCIAL HISTORY: No history of alcohol or drug abuse. FAMILY HISTORY: Not contributing. PHYSICAL EXAMINATION: VITAL SIGNS: Temperature 97, blood pressure 110/72, pulse 86, and respiratory rate 18. HEENT: No pale conjunctivae. No icterus. NECK: No lymphadenopathy. CHEST: Clear. HEART: S1 and S2. ABDOMEN: Soft and nontender. EXTREMITIES: No cyanosis at this time. NEUROLOGIC: Awake. LABORATORY AND DIAGNOSTIC DATA: White blood cells 5, hemoglobin 11, and platelets 170,000. UA unremarkable except 15 to 20 red blood cells on the day of admission and yesterday was 5 to 10. BUN 20 and creatinine 1.4. Liver function tests are unremarkable. CT showed bilateral nephrolithiasis and right lower pole staghorn calculus. ASSESSMENT: The patient is a 62-year-old male with, 1. Hematuria. 2. History of renal stone/staghorn renal stone. 3. Hematuria, however, no significant pyuria, doubt urinary tract infection. At this point, the patient antibiotics recently. PLAN: 1. We will monitor the patient off of antibiotics. 2. We will send blood and urine culture. 3. We will avoid continuation of antibiotic to avoid developmental resistance. If the patient develops fever or leukocytosis, we may start the patient on empiric antibiotic treatment. 4. The patient needs Urology evaluation. 5. Monitor CBC and BMP. Thank you for this consultation. I will follow the patient during this admission. Nikos Gutierres M.D. DR: LYUBOV JOB#: [id number] CC:
[2017-07-01 23:37] VITALS: BP 114/76
[2017-07-02 04:00] VITALS: BP 131/81
[2017-07-02 08:00] VITALS: BP 105/59
--- NOTE | 2017-07-02 08:12 | Diagnostic Imaging Report ---
APPROVED REPORT CPT Code: 09283 Present Symptoms Comments: R/O DVT Risk Factors Bed Rest BILATERAL: Imaging reveals a patent deep venous system bilaterally. There is no evidence of thrombus within the femoral, popliteal or tibial segments. The greater saphenous veins are also within normal limits. Doppler indicates normal spontaneous flow within these segments.
[2017-07-02] MEDS: Vitamin B12 1000mcg/ml Inj SUBQ SCH (08:57)
[2017-07-02] MEDS: Morphine Sulfate 4mg/ml Inj IVP PRN (08:58)
[2017-07-02] MEDS: D5NS 1,000 ML IV SCH (10:30)
--- NOTE | 2017-07-03 10:39 | Discharge Summary ---
Discharge Summary Hospital Course Date of Admission Jun 29, 2017 at 21:50 Date of Discharge Jul 02, 2017 at 10:40 Admitting Diagnosis GROSS HEMATURIA,RENAL STONES RADHA Hodge is a 62 year old male who was admitted on Jun 29, 2017 at 21: 50 for Gross Hematuria,Renal Stones Hospital Course [id number] Discharge Discharge Disposition Patient was discharged to Home (01) Myla Gomes NP Jul 03, 2017 10:39
--- NOTE | 2017-07-03 21:30 | Discharge Summary 2 SIG ---
DATE OF ADMISSION: 06/29/2017 DATE OF DISCHARGE: 07/02/2017 CONSULTANTS: 1. Nikos Gutierres M.D. 2. Robert Barraza M.D. 3. Leonard Olson M.D. BRIEF HOSPITAL COURSE: The patient is a 62-year-old male with history of congestive heart failure, was brought in via EMS for complaints of cough and hematuria. The patient had previous episodes of hematuria, however, which were not as severe. The patient reported having dark red blood. He denied taking any anticoagulants or aspirin. He denied any prostate problems. On evaluation at ED, hemoglobin was 14 and hematocrit was 42. There was no leukocytosis. Urinalysis showed evidence of infection with 5 to 10 wbc, 15 to 20 rbc, 2+ leukocyte esterase, and 5+ occult blood. He had a CT scan of the abdomen and pelvis that showed no acute abnormality with bilateral nephrolithiasis including right lower pole staghorn calculus. There was markedly atrophic right kidney. He was started on IV antibiotics and was admitted for inpatient care due to hematuria with bilateral kidney stones and kidney infection. He underwent evaluation by urologist. Physical examination was essentially unremarkable and the patient's urine has cleared. He stated that he had been in physical therapy couple of days prior and he underwent vibrostimulation and electrical stimulation on his back. Per urologist evaluation, gross hematuria was likely secondary to his physical therapy session with vibrostimulation. His renal stones are nonobstructing and does not need emergent treatment/surgery. He was instructed to follow up with his primary doctor for management of kidney stones. He was given Rocephin at the emergency room. He was seen by Infectious Disease specialist. He was taken off antibiotics. There was no leukocytosis and no fever. The patient had kidney failure. Initial creatinine on admission was 2.1 and eventually improved to 1.4. Kidney failure was resolving with hydration. He was given Flomax and vitamin B12. He was eventually discharged home. He underwent PT and OT and he was eventually discharged home. FINAL DIAGNOSES: 1. Acute urinary hematuria. 2. Urinary tract infection. 3. Bilateral kidney stones. 4. Acute kidney injury, resolving DISPOSITION: The patient was discharged home. DISCHARGE MEDICATIONS: Refer to medication list. DISCHARGE INSTRUCTIONS: Follow up with PCP for a Urology referral as outpatient. Annelise Thorpe M.D. I have been assigned to dictate discharge summary on this account and I was not involved in the patient's management. Myla Gomes N.P. DR: NICHOLAS JOB#: [id number] CC:
== END 2017-07-02 10:40 | disposition home or self-care (01) | DRG 463 ==
LOC: EDBD 17:33 → EMR 18:00 → 4W 21:50 → EDBEDREQ 22:48
DX: N39.0 Urinary tract infection, site not specified (principal); N17.9 Acute kidney failure, unspecified; I50.9 Heart failure, unspecified; R31.0 Gross hematuria; N20.0 Calculus of kidney; J45.909 Unspecified asthma, uncomplicated
CPT/HCPCS: 36415; 74176; 80053; 80061; 81001; 81003; 82550; 82607; 82728; 82746; 82962; 83036; 83540; 83550; 83690; 83735; 84100; 84300; 84443; 84550; 85025; 85610; 85730; 86140; 86850; 86900; 86901; 87040; 89050; 93970; 99285